=== PATIENT | female | born 2000 | race Caucasian/White ===

== ENCOUNTER 2022-03-21 05:07 | Inpatient (IN) ==
[2022-03-21] MEDS ORDERED: METHYLERGONOVINE 0.2 MG/1 ML AMP IM PRN (05:16)
[2022-03-21] MEDS ORDERED: MEPERIDINE 50 MG/1 ML VIAL IV PRN (05:16)
[2022-03-21] MEDS ORDERED: TRANEXAMIC ACID 1,000 MG in SODIUM CHLORIDE 0.9% 100 ML IV PRN (05:16)
[2022-03-21] MEDS ORDERED: OXYTOCIN/LR 20 UNIT/1,000 ML BAG IV PRN (05:16)
[2022-03-21] MEDS ORDERED: ONDANSETRON 4 MG/2 ML VIAL IV PRN (05:16)
[2022-03-21] MEDS ORDERED: CARBOPROST TROMETHAMINE 250 MCG/ML AMP IM PRN (05:16)
[2022-03-21] MEDS ORDERED: miSOPROStoL 200 MCG TABLET RECTAL PRN (05:16)
[2022-03-21] MEDS ORDERED: BUTORPHANOL 1 MG/ML VIAL IV PRN (05:16)
[2022-03-21] MEDS ORDERED: LACTATED RINGERS 1,000 ML IV SCH ×2 (05:30→09:30)
[2022-03-21] MEDS ORDERED: OXYTOCIN/LR 20 UNIT/1,000 ML BAG IV SCH (05:30)
[2022-03-21 06:32] LABS: Albumin 2.8 G/DL (3.4-5.0); Bilirubin,Total 0.4 MG/DL (0.20-1.00); Calcium 9.7 MG/DL (8.5-10.1); Osmolality,Calculated 274.5 MOS/KG (273-304); Potassium 4.5 MMOL/L (3.5-5.1); Total Protein 6.9 G/DL (6.4-8.2)
[2022-03-21 06:42] LABS: Basophils # 0.1 10*3/uL (0.0-0.2); Basophils % 0.5 % (0.0-0.8); Eosinophils # 0.1 10*3/uL (0.0-0.87); Eosinophils % 0.5 % (0.00-10.9); Hematocrit 32.6 VOL% (35.7-47.0); Hemoglobin 10.8 GM/DL (12.0-16.0); Immature Granulocytes % 3.1 %; Lymphocytes # 1.9 10*3/uL (1.4-4.0); Mean Corpuscular HGB Conc 33.1 GM/DL (32-36); Mean Corpuscular Volume 89.3 FL (87-102); Mean Platelet Volume 10.6 FL (9.6-12.0); Monocytes # 0.6 10*3/uL (0.11-0.8); Monocytes % 6.5 % (1.7-12.7); Neutrophils % 69.4 % (38.7-73.9); Platelet Count 178 T/CUMM (130-400); Red Blood Count 3.65 MC/CUMM (3.8-5.5); Red Cell Distribution Width 14.2 % (9.3-17.3); White Blood Count 9.7 T/CUMM (4-12)
[2022-03-21] MEDS ORDERED: FAMOTIDINE 20 MG/2 ML VIAL IV ONE (09:01)
[2022-03-21] MEDS ORDERED: CITRIC ACID/SODIUM CITRATE 30 ML UDCUP PO ONE (09:01)
[2022-03-21] MEDS ORDERED: ePHEDrine 50 MG/ML VIAL IV PRN (09:01)
[2022-03-21] MEDS ORDERED: LACTATED RINGERS 1,000 ML IV ONE (09:01)
[2022-03-21] MEDS ORDERED: hydrOXYzine HCL 25 MG/1 ML VIAL IM PRN (09:02)
[2022-03-21] MEDS ORDERED: PROMETHAZINE 25 MG/1 ML VIAL IM ONE (09:02)
[2022-03-21] MEDS ORDERED: diphenhydrAMINE 50 MG/1 ML VIAL IV PRN ×2 (09:02)
[2022-03-21] MEDS ORDERED: NALOXONE 0.4 MG/ML VIAL IV PRN (09:02)
[2022-03-21] MEDS ORDERED: fentaNYL 2 MCG/ROPIV 0.2% EPID 100 ML EPIDURAL SCH (09:30)
[2022-03-21 12:12] LABS: Mucus,Urine Occasional /LPF (Occasional); RBC,Urine 1 /HPF (0-4); Squamous Epithelial Cell,Urine Occasional /HPF (0-10)
[2022-03-21 12:15] LABS: Bilirubin,Urine Negative (Negative); Blood, Urine Negative (Negative); Glucose,Urine (UA) Negative (Negative); Ketones,Urine Negative (Negative); Nitrite,Urine Negative (Negative); Protein,Urine Negative (Negative); Urine Appearance Clear (Clear); Urine Color Yellow (Yellow); Urine Urobilinogen 0.2 eU/dL (<2.0)
[2022-03-21] MEDS ORDERED: SODIUM CHLORIDE 0.9% 0 ML IV ONE (14:22)
[2022-03-21 15:22] LABS: Cord Arterial Blood HCO3 18.3 MMOL/L
[2022-03-21 15:25] LABS: Cord Venous Blood HCO3 20.7 MMOL/L; Cord Venous Blood PCO2 40.3 MMHG; Cord Venous Blood PO2 34.5
[2022-03-21] MEDS ORDERED: MEASLES/MUMPS/RUBELLA VACCINE 0.5 ML VIAL SUBCUT ONE (18:15)
[2022-03-21] MEDS ORDERED: LANOLIN 50% CREAM 0.3 OZ TUBE TOP PRN (18:15)
[2022-03-21] MEDS ORDERED: BENZOCAINE 20%/MENTHOL 0.5% SPRAY 56 GM CAN TOP PRN (18:15)
[2022-03-21] MEDS ORDERED: HYDROCORTISONE 2.5% RECTAL CREAM 30 GM TUBE TOP PRN (18:15)
[2022-03-21] MEDS ORDERED: oxyCODONE/ACETAMINOPHEN 5-325 MG TABLET PO PRN (18:15)
[2022-03-21] MEDS ORDERED: RHO(D) IMMUNE GLOBULIN 300 MCG SYRINGE IM ONE (18:15)
[2022-03-21] MEDS ORDERED: OXYTOCIN/LR 20 UNIT/1,000 ML BAG IV ONE (18:15)
[2022-03-21] MEDS ORDERED: DIPH/TET/ACEL PERT BOOSTER VACCINE 0.5 ML VIAL IM ONE (18:15)
[2022-03-21] MEDS ORDERED: BISACODYL 10 MG SUPP RECTAL PRN (18:15)
[2022-03-21] MEDS ORDERED: ACETAMINOPHEN 325 MG TABLET PO PRN (18:15)
[2022-03-21] MEDS: WITCH HAZEL PADS 100/JAR TOP PRN (20:08)
[2022-03-21] MEDS: IBUPROFEN 800 MG TABLET PO PRN (20:09)
[2022-03-21] MEDS: DOCUSATE SODIUM 100 MG CAPSULE PO SCH (22:12)
[2022-03-22] MEDS: oxyCODONE/ACETAMINOPHEN 5-325 MG TABLET PO PRN ×3 (01:10→19:12)
[2022-03-22 04:41] LABS: Basophils % 0.4 % (0.0-0.8); Eosinophils % 0.3 % (0.00-10.9); Hematocrit 29.5 VOL% (35.7-47.0); Hemoglobin 9.7 GM/DL (12.0-16.0); Immature Granulocytes % 1.8 %; Lymphocytes # 1.9 10*3/uL (1.4-4.0); Lymphocytes % 17.5 % (21.3-54.2); Mean Corpuscular HGB Conc 32.9 GM/DL (32-36); Mean Corpuscular Volume 91.6 FL (87-102); Mean Platelet Volume 10.7 FL (9.6-12.0); Monocytes # 0.8 10*3/uL (0.11-0.8); Monocytes % 6.9 % (1.7-12.7); Neutrophils % 73.1 % (38.7-73.9); Platelet Count 169 T/CUMM (130-400); Red Blood Count 3.22 MC/CUMM (3.8-5.5); Red Cell Distribution Width 14.3 % (9.3-17.3); White Blood Count 10.9 T/CUMM (4-12)
[2022-03-22] MEDS: IBUPROFEN 800 MG TABLET PO PRN (06:40)
[2022-03-22] MEDS: DOCUSATE SODIUM 100 MG CAPSULE PO SCH ×2 (08:23→21:44)
[2022-03-22] MEDS ORDERED: ONDANSETRON 4 MG TABLET PO PRN (12:05)
[2022-03-22] MEDS: FERROUS SULFATE 325 MG TABLET PO SCH ×2 (12:16→21:44)
[2022-03-23] MEDS: oxyCODONE/ACETAMINOPHEN 5-325 MG TABLET PO PRN (03:45)
[2022-03-23] MEDS: DOCUSATE SODIUM 100 MG CAPSULE PO SCH (08:43)
[2022-03-23] MEDS: FERROUS SULFATE 325 MG TABLET PO SCH (08:43)
[2022-03-23] MEDS: WITCH HAZEL PADS 100/JAR TOP PRN (10:01)
[2022-03-23 11:34] VITALS: BP 117/79
== END 2022-03-23 12:09 | disposition home or self-care (01) | DRG 807 ==
LOC: N.LD 05:07 → N.OB 18:15
PROVIDERS: ADMIT Obstetrics & Gynecology; ATTEND Obstetrics & Gynecology